=== PATIENT | female | born 1985 | race Caucasian/White ===

== ENCOUNTER 2018-10-06 03:05 | Emergency (ER) | payer OTHER ==
[~2018-10-06] VITALS: Ht 157.5 cm; Wt 102.1 kg
--- NOTE | 2018-10-06 03:43 | PHYS DOC ---
Past Medical History Past Medical History: Hypertension Additional Past Medical Histor: PCOS Past Surgical History: Cholecystectomy, Additional Past Surgical Histo: KIDNEY STONE REMOVAL Alcohol Use: Rarely Drug Use: None Adult General Chief Complaint Chief Complaint: Congestion HPI HPI Patient is a 33-year-old female who presents with complaint of cough, congestion and sore throat for the last 2 days. Patient does not believe that she has been running a fever. She states that earlier this evening she checked her throat and saw some pus pockets on her tonsils and then she gargled after which she states she did not see the pus pockets anymore. She rates her pain in her throat as moderate. She also complains of some chest soreness associated with her coughing. She states the cough is been nonproductive. Review of Systems Review of Systems Constitutional: Denies fever or chills [] HENT: Complains of congestion and sore throat [] Respiratory: Complains of cough without shortness of breath [] Cardiovascular: No additional information not addressed in HPI [] Integument: Denies rash or skin lesions [] Neurologic: Denies headache, focal weakness or sensory changes [] Allergies Allergies Allergies Coded Allergies Type Severity Reaction Last Updated Verified No Known Drug Allergies 10/06/18 No Physical Exam Physical Exam Constitutional: Well developed, well nourished, no acute distress, non-toxic appearance. [] HENT: Normocephalic, atraumatic, bilateral external ears normal, there is tonsillar swelling with pharyngeal erythema. No exudates are seen. [] Neck: Normal range of motion, no tenderness, supple, with shotty cervical lymphadenopathy. [] Cardiovascular: Regular rate and rhythm[] Lungs & Thorax: Bilateral breath sounds clear to auscultation [] Skin: Warm, dry, no erythema, no rash. [] Current Patient Data Vital Signs Vital Signs Date Time Temp Pulse Resp B/P (MAP) Pulse Ox O2 Delivery O2 Flow Rate FiO2 10/06/18 03:27 98.7 89 16 126/68 (87) 96 Room Air 98.7 EKG EKG [] Radiology/Procedures Radiology/Procedures [] Course & Med Decision Making Course & Med Decision Making Pertinent Labs and Imaging studies reviewed. (See chart for details) [] Dragon Disclaimer Dragon Disclaimer This electronic medical record was generated, in whole or in part, using a voice recognition dictation system. Departure Departure Impression: Primary Impression: Tonsillitis Additional Impression: Upper respiratory infection Disposition: HOME, SELF-CARE Condition: STABLE Patient Instructions: Tonsillitis, Upper Respiratory Infection, Adult Scripts Azithromycin (ZITHROMAX) 250 Mg Tablet 1 PKG PO UD, #6 TAB Prov: MICHAELA SONG Jr. DO 10/06/18 Problem Qualifiers Additional Impression: Upper respiratory infection URI type: unspecified URI Qualified Codes: J06.9 - Acute upper respiratory infection, unspecified MICHAELA SONG Jr. DO Oct 06, 2018 03:43
[2018-10-06] MEDS ORDERED: AZIT250T PO (04:25)
[2018-10-06 04:28] VITALS: BP 107/68
[2018-10-06] MEDS ORDERED: AZITHROMYCIN 250 MG TABLET. PO ONE (05:00)
== END 2018-10-06 05:00 | disposition home or self-care (01) ==
LOC: ER 03:05
DX: J06.9 Acute upper respiratory infection, unspecified (principal); J03.90 Acute tonsillitis, unspecified; I10 Essential (primary) hypertension
CPT/HCPCS: 87070; 87880; 99283; Q0144

== ENCOUNTER → 2020-11-11 | Outpatient (CLI) | payer MEDICAID ==
[~2020-11-11] MED LIST: AZIT250T PO
--- NOTE | 2020-11-11 14:16 | KCIC ---
EXAM: LUMBAR SPINE MINIMUM 4 VIEWS. HISTORY: Bilateral lower extremity paresthesias. COMPARISON: None. FINDINGS: A minimal lumbar levocurvature is within normal limits. Vertebral body heights are maintain ed, and no fractures are identified. Intervertebral disc heights are maintained. Cholecystectomy clips are noted. Stool throughout the right colon is consistent with constipation. IMPRESSION: 1. No fracture or clear degenerative change. 2. Correlate for constipation. Electronically signed by: Jose Campbell MD (11/11/2020 2:14 PM) [id number]
== END ==
LOC: KCIC 13:08
PROVIDERS: ATTEND Nurse Practitioner Gerontology
DX: R20.2 Paresthesia of skin (principal); Z90.49 Acquired absence of other specified parts of digestive tract
CPT/HCPCS: 72110

== ENCOUNTER → 2021-01-02 | Outpatient (CLI) | payer MEDICAID ==
--- NOTE | 2021-01-02 11:05 | KCIC ---
MR CERVICAL SPINE WO History:Reason: CERVICALGIA MYELOPATHY / Spl. Instructions: Sx started early September. Continued RLE pietro holden. / History: Pt awoke after sleeping wrong with neck pain and numbness in RLE. Technique: Multiplanar, multi sequential noncontrast MR imaging was performed of the cervical spine. Comparison: None Findings: Normal vertebral body height and alignment. No fracture. Increased or signal abnormality within the cervical cord at the C5-C6 level. C2-C3: No canal or neuroforaminal narrowing. C3-C4: Small disc bulge. No canal narrowing. Uncovertebral hypertrophy, right greater than left. Sev ere right and mild left neuroforaminal narrowing. C4-C5: Small disc bulge. No canal narrowing. No neuroforaminal narrowing. C5-C6: Central disc extrusion extending superiorly. Severe canal narrowing. Cord compression. Facet arthropathy. Mild left neuroforaminal narrowing. C6-C7: Small central disc protrusion. Mild canal narrowing. Slight cord flattening. Facet arthropat hy on the left. Mild left neuroforaminal narrowing. C7-T1: No canal or neuroforaminal narrowing. Impression: 1. Multilevel cervical spondylosis most prominent C5-C6. 2. C5-C6 central disc extrusion contributing to severe canal narrowing with cord compression and ass ociated cord edema. 3. C6-C7 mild canal narrowing. 4. Neuroforaminal narrowing most prominent severe right C3-C4. FOR INTERNAL CODING PURPOSES Critical result: Findings discussed with Dr. Brandon's office at 01/02/2021 11:01 AM. RESULT CODE: (C) Electronically signed by: Ren Strauss DO (01/02/2021 11:02 AM) [id number]
== END ==
LOC: KCIC MRI 09:50
PROVIDERS: ATTEND Psychiatry & Neurology Neurology with Special Qualifications in Child Neurology
DX: M47.12 Other spondylosis with myelopathy, cervical region (principal); M48.02 Spinal stenosis, cervical region; G95.9 Disease of spinal cord, unspecified
CPT/HCPCS: 72141

== ENCOUNTER → 2021-01-26 | Outpatient (CLI) | payer MEDICAID ==
[~2021-01-26] MED LIST changes: +ALBU2.5V8 IH; +HYDR-2761 PO; +LIRA0.6P2 SQ; +METH-562 PO; +OXYC1TAB15 PO; +SENN-213 PO
[2021-01-26 14:59] LABS: BASO # 0.1 x10^3/uL (0.0-0.2); BASO % 1 % (0-3); EOS # 0.1 x10^3/uL (0.0-0.7); EOS % 2 % (0-3); HEMATOCRIT 42.2 % (36.0-47.0); HEMOGLOBIN 14.4 g/dL (12.0-15.5); LYMPH # 2.4 x10^3/uL (1.0-4.8); LYMPH % 32 % (24-48); MEAN CORPUSCULAR HEMOGLOBIN 31 pg (25-35); MEAN CORPUSCULAR HGB CONC 34 g/dL (31-37); MEAN CORPUSCULAR VOLUME 90 fL (79-100); MONO # 0.5 x10^3/uL (0.0-1.1); MONO % 6 % (0-9); NEUT # 4.4 x10^3/uL (1.8-7.7); NEUT % 59 % (31-73); PLATELET COUNT 343 x10^3/uL (140-400); RED CELL DISTRIBUTION WIDTH 12.7 % (11.5-14.5); WHITE BLOOD COUNT 7.4 x10^3/uL (4.0-11.0)
[2021-01-26 15:10] LABS: PROTHROMBIN TIME PATIENT 13.3 SEC (11.7-14.0)
[2021-01-26 15:40] LABS: ALBUMIN/GLOBULIN RATIO 1.2 (1.0-1.7); CALCIUM 8.9 mg/dL (8.5-10.1); CREATININE 0.6 mg/dL (0.6-1.0); GFR 115.1; POTASSIUM 4.3 mmol/L (3.5-5.1); TOTAL BILIRUBIN 0.4 mg/dL (0.2-1.0); TOTAL PROTEIN 7.3 g/dL (6.4-8.2)
== END ==
LOC: SURGPAT 13:40
PROVIDERS: ATTEND Neurological Surgery
DX: M50.20 Other cervical disc displacement, unspecified cervical region (principal); Z01.812 Encounter for preprocedural laboratory examination; M54.12 Radiculopathy, cervical region; G99.2 Myelopathy in diseases classified elsewhere; Z20.822 Contact with and (suspected) exposure to COVID-19
CPT/HCPCS: 80053; 83036; 85025; 85610; 85730; 87641; U0003; U0005

== ENCOUNTER 2021-01-31 06:42 | Inpatient (IN) | payer MEDICAID ==
[2021-01-26 14:22] VITALS: BP 125/81
[~2021-01-31] VITALS: Ht 157.5 cm; Wt 83.9 kg
[2021-01-31] VITALS (10 sets, daily range): BP systolic 100–131; BP diastolic 53–100
[~2021-01-31 06:42] MED LIST changes: -HYDR-2761 PO; +HYDROmorphone 2 MG/ML VIAL IVP PRN; +IV RINGERS,LACTATED 1000ML 1,000 ML IV SCH; -METH-562 PO; +MORPHINE SULFATE 2 MG/ML INJ. IVP PRN; -OXYC1TAB15 PO; +PROCHLORPERAZINE 10 MG/2 ML VIAL. IVP PRN; -SENN-213 PO; +fentaNYL PF VIAL 100 MCG/2 ML VIAL IVP PRN
[2021-01-31] MEDS ORDERED: THROMBIN TOPICAL 20,000 UNIT SPRAY.SYRN KIT TP ONE (07:05)
[2021-01-31] MEDS ORDERED: BUPIVACAINE-EPI 0.5%-1:200000 MPF 30 ML VIAL. ONE (07:05)
[2021-01-31] MEDS ORDERED: GELATIN SPONGE SIZE 100. ONE (07:05)
[2021-01-31] MEDS ORDERED: HYDR-2761 PO (07:08)
[2021-01-31] MEDS ORDERED: REMIFENTANIL 2 MG VIAL. IV ONE (07:11)
[2021-01-31] MEDS ORDERED: 0.9 % SODIUM CHLORIDE 20 ML VIAL. IJ ONE ×2 (07:13→07:14)
[2021-01-31] MEDS ORDERED: PROPOFOL 10 MG/ML (20ML) VIAL. IV ONE (07:13)
[2021-01-31] MEDS ORDERED: PHENYLEPHRINE 10 MG/ML VIAL. ONE ×2 (07:13)
[2021-01-31] MEDS ORDERED: PROPOFOL 50 ML IV ONE ×2 (07:13→10:50)
[2021-01-31] MEDS ORDERED: ONDANSETRON PF 4 MG/2 ML VIAL. ONE (07:13)
[2021-01-31] MEDS ORDERED: DEXAMETHASONE SOD PHOS 4 MG/ML VIAL ONE (07:13)
[2021-01-31] MEDS ORDERED: ROCURONIUM 50 MG/5 ML VIAL. ONE (07:54)
[2021-01-31] MEDS ORDERED: SUCCINYLCHOLINE 200 MG/10 ML VIAL. ONE (07:55)
[2021-01-31] MEDS ORDERED: fentaNYL PF VIAL 100 MCG/2 ML VIAL ONE (07:56)
[2021-01-31] MEDS ORDERED: MIDAZOLAM HCL/PF 2 MG/2 ML VIAL. ONE (07:57)
[2021-01-31] MEDS ORDERED: NEOSTIGMINE METHYLSULFATE 5 MG/5 ML SYRINGE. ONE (08:48)
[2021-01-31] MEDS ORDERED: DESFLURANE > 120 MINUTES IH ONE (08:52)
[2021-01-31] MEDS ORDERED: ESMOLOL 100 MG/10 ML VIAL. IVP ONE (09:35)
[2021-01-31] MEDS ORDERED: VANCOMYCIN 1 GM VIAL. ONE (11:00)
--- NOTE | 2021-01-31 11:36 | PDOC ---
BRIEF OPERATIVE NOTE Date: Jan 31, 2021 Pre-Op Diagnosis herniated disk C5-6, cervical myelopathy Post-Op Diagnosis same Procedure Performed anterior cervical discectomy and fusion C5-6 with anterior instrumentation and structural allograft Surgeon Cuco Rip/Mould Operator none Anesthesia Type: General Blood Loss 15mL Specimens Obtained disk Findings prominent disk herniation at C5-6, neuromonitoring markedly improved upon completion of procedure Complications none apparent PAZ CACERES MD Jan 31, 2021 11:36
[2021-01-31] MEDS ORDERED: NALOXONE 0.4 MG/ML VIAL. IV PRN ×2 (11:45)
[2021-01-31] MEDS ORDERED: oxyCODONE/APAP 5/325 1 TAB TABLET PO PRN (11:45)
[2021-01-31] MEDS ORDERED: IV NORMAL SALINE 1000ML BAG 1,000 ML IV SCH (11:45)
[2021-01-31] MEDS ORDERED: diphenhydrAMINE HCL 25 MG CAPSULE PO PRN (11:45)
[2021-01-31] MEDS ORDERED: ZOLPIDEM 5 MG TABLET. PO PRN (11:45)
[2021-01-31] MEDS ORDERED: MAGNESIUM HYDROXIDE 2,400 MG/30 ML ORAL.SUSP. PO PRN (11:45)
[2021-01-31] MEDS: fentaNYL PF VIAL 100 MCG/2 ML VIAL IVP PRN ×2 (11:45→12:04)
[2021-01-31] MEDS ORDERED: MAG HYDROX/ALUMINUM HYD/SIMETH 30 ML ORAL.SUSP PO PRN (11:45)
[2021-01-31] MEDS ORDERED: ACETAMINOPHEN 325 MG TABLET. PO PRN (11:45)
[2021-01-31] MEDS ORDERED: diphenhydrAMINE 50 MG/ML VIAL IV PRN (11:45)
[2021-01-31] MEDS ORDERED: 0.9 % SODIUM CHLORIDE 10 ML DISP.SYRIN. IV PRN (11:45)
[2021-01-31] MEDS ORDERED: fentaNYL PF VIAL 100 MCG/2 ML VIAL IVP PRN ×2 (11:45)
[2021-01-31] MEDS ORDERED: CALCIUM CARBONATE 500 MG TAB.CHEW PO PRN (11:45)
[2021-01-31] MEDS ORDERED: MORPHINE SULFATE 2 MG/ML INJ. ONE (12:09)
[2021-01-31] MEDS ORDERED: PROCHLORPERAZINE 10 MG/2 ML VIAL. ONE (12:10)
--- NOTE | 2021-01-31 14:40 | NUR ---
Arrived to unit by bed from PACU. Alert and oriented x'4. No c/o at this time. Anterior cervical dressing is intact with some shadowing noted. No more c/o numbness arms or legs. Able to move all extremities. Wanting ambulate to bathroom. Ambulated with steady gait with assist of 1. Voided and return to bed. No oxygen. Teds and DEBRA' on bilaterally. Oriented to room and controls. Side rails up x's 2 with call light in reach. Boyfriend at bedside. Cont. monitor.
[2021-01-31] MEDS: MULTIVITAMIN with MINERAL TABLET. PO SCH (16:00)
[2021-01-31] MEDS: METHOCARBAMOL 750 MG TABLET PO SCH ×2 (16:00→20:52)
[2021-01-31] MEDS: oxyCODONE/APAP 5/325 1 TAB TABLET PO PRN ×2 (16:01→22:18)
[2021-01-31] MEDS: FERROUS SULFATE 325 MG TABLET. PO SCH (19:22)
[2021-01-31] MEDS: CALCIUM CARB/VIT D3 500/200 TABLET. PO SCH (19:22)
[2021-01-31] MEDS: ONDANSETRON PF 4 MG/2 ML VIAL. IVP PRN (19:24)
[2021-01-31] MEDS: SENNOSIDES/DOCUSATE 8.6/50MG TABLET. PO SCH (20:52)
[2021-01-31] MEDS: DOCUSATE SODIUM 100 MG CAPSULE. PO SCH (20:52)
[2021-02-01 02:39] VITALS: BP 112/70
[2021-02-01 06:08] VITALS: BP 125/83
[2021-02-01] MEDS: oxyCODONE/APAP 5/325 1 TAB TABLET PO PRN ×2 (06:25→10:38)
[2021-02-01] MEDS ORDERED: LIRAGLUTIDE 3 MG SQ SCH (08:00)
[2021-02-01] MEDS: METHOCARBAMOL 750 MG TABLET PO SCH (08:57)
[2021-02-01] MEDS: CALCIUM CARB/VIT D3 500/200 TABLET. PO SCH (08:57)
[2021-02-01] MEDS: SENNOSIDES/DOCUSATE 8.6/50MG TABLET. PO SCH (08:57)
[2021-02-01] MEDS: MULTIVITAMIN with MINERAL TABLET. PO SCH (08:57)
[2021-02-01] MEDS: FERROUS SULFATE 325 MG TABLET. PO SCH (08:57)
[2021-02-01] MEDS: DOCUSATE SODIUM 100 MG CAPSULE. PO SCH (08:57)
[2021-02-01] MEDS: ONDANSETRON PF 4 MG/2 ML VIAL. IVP PRN (10:09)
--- NOTE | 2021-02-01 10:26 | PDOC ---
Date of Service: DATE: 02/01/21 TIME: 10:23 Progress Note: S: Reports improvement of arm and leg sensation. Swallowing fine. O: AF/VSS, AAOx4, NAD, speech fluent with good phonation, DUBOSE 5/5, sensation intact, LT, dressing c/d/i A: POD1 C5-6 ACDF P: d/c home today with standard post-op restrictions Justifications for Admission Other Justification PAZ CACERES MD Feb 01, 2021 10:26
[2021-02-01] MEDS ORDERED: OXYC1TAB15 PO (10:33)
[2021-02-01] MEDS ORDERED: SENN-213 PO (10:33)
[2021-02-01] MEDS ORDERED: METH-562 PO (10:47)
--- NOTE | 2021-02-01 12:12 | NUR ---
Discharge instructions given to pt at 1145. Instructed pt on dressing change. Pt verbalized understanding and denied questions. Pt discharged in wheelchair via transport team.
--- NOTE | 2021-02-01 21:07 | OP ---
DATE OF SURGERY: 01/31/2021 SURGEON: Murali Norwood MD REGIONAL PROJECT MANAGER: None. PREOPERATIVE DIAGNOSES: Cervical disk herniation, stenosis, resulting in cervical myelopathy including cervical radiculopathy and weakness. POSTOPERATIVE DIAGNOSIS: Cervical disk herniation, stenosis, resulting in cervical myelopathy including cervical radiculopathy and weakness. PROCEDURES: Anterior cervical discectomy and fusion at cervical 5-6 utilizing anterior instrumentation provided by [employer], utilizing a structural allograft substrate for the fusion construct with intraoperative neuromonitoring. ANESTHESIA: General. COMPLICATIONS: None. INDICATIONS FOR THE PROCEDURE: The patient is a pleasant 35-year-old female who presented with upper and lower extremity symptoms and cervical myelopathy, localized to a cervical disk herniation at cervical 5-6 with significant stenosis and cord contusion. Please refer to the patient's chart for additional detail. DESCRIPTION OF PROCEDURE: After informed consent was obtained, the patient was brought to the operating room, was placed under general anesthesia. She was placed in the supine position with a shoulder bump under both shoulders and the head was placed in very slight extension. Ancef was instituted as a prophylactic antibiotic. The anterior neck was prepped and draped in the usual sterile fashion after appropriate incision location was determined by fluoroscopy. A horizontal incision centered over the region of cervical 5-6 was made with a 10 blade scalpel. Blunt dissection techniques were utilized to dissect the underlying soft tissues, exposing the platysma muscle. The platysma was sharply divided in the plane of the incision and blunt dissection techniques were utilized to develop the plane between the trachea-esophageal complex medially and the carotid sheath laterally to expose the anterior cervical spine. The prevertebral fascia was gently taken down with a Kitner. The cervical level was verified with fluoroscopy prior to the initiation of the discectomy. Distraction pins were instituted into the bodies of cervical 5 and cervical 6 and slight distraction was instituted. This was again verified with fluoroscopy prior to the initiation of the discectomy and decompression. Once this was verified, an annulotomy was performed with 11 blade scalpel and discectomy was performed with a pituitary rongeur as well as a Kerrison rongeur. A curette and an endplate scraper was utilized to dissect additional disk material until the discectomy was complete. Anterior longitudinal ligament was taken down with a Kerrison rongeur. Additional disk material which was noted to be anterior to this ligament was gently teased posteriorly into the disk space and removed with a pituitary rongeur. Upon completion of the discectomy/decompression, neuromonitoring potentials were noted to be significantly improved. Decompression also was verified with direct visualization as well as gentle palpation with a blunt nerve hook. Once this was complete, trials were instituted to determine an appropriate structural allograft size. A 7 mm allograft was instituted into the space at cervical 5-6. This was gently tamped into place with good anatomical contour. Distraction was removed and the distraction pins were removed. The anterior osteophytes were taken down with a pneumatic drill to produce a flush surface for the plate. An appropriate [employer] anterior cervical plate was instituted with four screws, two were instituted in cervical 5 and two instituted in the cervical 6 with good purchase. Once the screws were in place, they were locked according to the straw hat plunger operator's specification. The fusion construct was visualized with fluoroscopy to verify appropriate position and this was noted to be adequate. Pristine hemostasis was achieved with FloSeal, generous irrigation, cottonoids, and minimal use of bipolar electrocautery. The wound was generously irrigated prior to the final closure. Vancomycin powder was instituted into the cavity as prophylaxis prior to the final closure. The platysma and subcutaneous tissues were reapproximated with 3-0 Vicryl in an interrupted inverted fashion. The skin was reapproximated with 4-0 Vicryl in a running subcuticular fashion. Mastisol and Steri-Strips were applied and the wound was dressed with Telfa and Tegaderm. At the end of the procedure, all needle and sponge counts were correct x 2. The patient was extubated in the operating room and taken to recovery in stable condition. There were no intraprocedural complications apparent. ERIKA DR: Rhea TID: [id number] MARTINEZ
--- NOTE | 2021-02-03 14:09 | PATHOLOGY ---
[facility] Accession Number: [id number] . 01 Material submitted: . vertebral column - CERVICAL DISK. Modifiers: CERVICAL . 01 Clinical history: . CERVICAL RADICULOPATHY ACDF HERNIATED DISC MYELOPATH . 02 Diagnosis: Segments of fibrocartilaginous tissue, cervical disc: - Degenerative changes. (JPM:wendy; 02/03/2021) S 02/03/2021 0943 Local . 02 Comment: There is no evidence of an acute inflammatory process or malignancy. (JPM:wendy; 02/03/2021) . 02 Electronically signed: . Esteban Milligan MD, Pathologist NPI- [id number] . 01 Gross description: . Received in formalin labeled "Jami Nunez, cervical disc" is a 3.0 x 2.8 x 0.4 cm aggregate of shine-white rubbery and gritty soft tissue and scant bone. Is Support Analyst tissue is submitted in cassette A1 following decalcification. ([facility] [place]; 02/02/2021) [facility] 02/03/2021 0942 Local . 02 Pathologist provided ICD-10: M50.30 . 02 CPT . 994213, [id number] Specimen Comment: A courtesy copy of this report has been sent to [phone] Specimen Comment: Report sent to / DR GAMBOA Performed at: [facility] [address], [place] [id number] MD Stan Will MD Phone: [phone] [facility]formed at: [facility] [address], [place] [id number] MD Esteban Milligan MD Phone: [phone]
== END 2021-02-01 12:12 | disposition home or self-care (01) | DRG 473 ==
LOC: OPSVCIP 06:42 → 4 NORTH 14:42 → 4 SOUTHEST 17:35
PROVIDERS: ADMIT Neurological Surgery; ATTEND Neurological Surgery
PROC: 0RT30ZZ Resection of Cervical Vertebral Disc, Open Approach (ICD-10-PCS; 2021-01-31)
PROC: 01N10ZZ Release Cervical Nerve, Open Approach (ICD-10-PCS; 2021-01-31)
PROC: 4A11X4G Monitoring of Peripheral Nervous Electrical Activity, Intraoperative, External Approach (ICD-10-PCS; 2021-01-31)
PROC: 0RG10K0 Fusion of Cervical Vertebral Joint with Nonautologous Tissue Substitute, Anterior Approach, Anterior Column, Open Approach (ICD-10-PCS; principal; 2021-01-31 08:00)
DX: M50.022 Cervical disc disorder at C5-C6 level with myelopathy (principal); M50.122 Cervical disc disorder at C5-C6 level with radiculopathy; I10 Essential (primary) hypertension; J45.909 Unspecified asthma, uncomplicated; E66.09 Other obesity due to excess calories; Z68.33 Body mass index [BMI] 33.0-33.9, adult
CPT/HCPCS: 76000; 81025; A4213; A4222; A4223; A4364; A4452; A4930; A6254; A6258; A6402; C1713; J0330; J0690; J0780; J1100; J2250; J2270; J2370; J2405; J2704; J2710; J3010; J3370; J3490; J7120; G0378

== ENCOUNTER → 2021-04-04 | Outpatient (CLI) | payer MEDICAID ==
[~2021-04-04] MED LIST changes: +HYDR-2761 PO; -HYDROmorphone 2 MG/ML VIAL IVP PRN; -IV RINGERS,LACTATED 1000ML 1,000 ML IV SCH; +METH-562 PO; -MORPHINE SULFATE 2 MG/ML INJ. IVP PRN; +OXYC-325 PO; +OXYC1TAB15 PO; -PROCHLORPERAZINE 10 MG/2 ML VIAL. IVP PRN; +SENN-213 PO; -fentaNYL PF VIAL 100 MCG/2 ML VIAL IVP PRN
--- NOTE | 2021-04-04 15:06 | KCIC ---
EXAM: Cervical spine, 3 views. HISTORY: Fusion. COMPARISON: 01/02/2021 FINDINGS: 3 views of the cervical spine are obtained. There is instrumented anterior spinal fusion an d interbody fusion at C5-C6. The instrumentation is in expected position. There is no listhesis. The vertebral bodies are normal in height and the nonfused disc spaces are preserved. IMPRESSION: Instrumented fusion at C5-C6. No acute osseous finding. Electronically signed by: Kamryn Devries MD (04/04/2021 3:03 PM) [id number]
== END ==
LOC: KCIC 13:11
PROVIDERS: ATTEND Neurological Surgery
DX: M43.22 Fusion of spine, cervical region (principal)
CPT/HCPCS: 72040